=== PATIENT | male | born 1945 | race Asian ===

== ENCOUNTER → 2017-08-13 | Outpatient (CLI) | payer OTHER, MEDICARE | LOC: FIMAGING 09:42 | PROVIDERS: ATTEND Family Medicine | DX: Z13.820 Encounter for screening for osteoporosis (principal); M81.0 Age-related osteoporosis without current pathological fracture; Z78.0 Asymptomatic menopausal state ==

== ENCOUNTER → 2018-02-18 | Outpatient (CLI) | payer OTHER, MEDICARE | LOC: SUPIMAGING 10:06 | PROVIDERS: ATTEND Family Medicine | DX: M79.642 Pain in left hand (principal); M79.89 Other specified soft tissue disorders | CPT/HCPCS: 73130-PN ==

== ENCOUNTER → 2018-04-30 | Outpatient (CLI) | payer OTHER, MEDICARE | LOC: SUPIMAGING 15:35 | PROVIDERS: ATTEND Family Medicine | DX: M25.562 Pain in left knee (principal) | CPT/HCPCS: 73562-PN ==